=== PATIENT | female | born 2000 | race Caucasian/White ===

== ENCOUNTER 2021-09-19 23:50 | Emergency (ER) | payer OTHER, SELFPAY ==
--- NOTE | ~2021-09-19 | XR_ITS ---
EXAMINATION: XR tibia fibula LT 2V EXAM DATE: 09/20/2021 01:44 INDICATION: Injury, left tibia-fibula pain. TECHNIQUE: Left tibia/fibula frontal and lateral projections obtained and reviewed. There is no prio r study for comparison. FINDINGS: Left tibial and fibular shafts unremarkable. There are no acute fractures or dislocations identified. There is no subcutaneous gas. The soft tissue is unremarkable. There are no radiopaqu e foreign bodies. IMPRESSION: No acute osseous findings. Reviewed, dictated and finalized at location A. MA COUNSELLOR IMPRESSION: No acute osseous findings.
[2021-09-19 23:55] VITALS: BP 141/81; PULSE 106; RESP 16; TEMP 36.9; O2SAT 98
[2021-09-20] MEDS: ACETAMINOPHEN 325 MG TABLET 650 MG PO (01:42)
--- NOTE | 2021-09-20 01:59 | ED_ITS ---
HPI - Extremity Injury (Lower) General Chief Complaint: Extremity Injury, Lower Stated Complaint: left foot injury Time Seen by Provider: 09/20/21 01:21 Source: patient Mode of arrival: ambulatory Limitations: no limitations History of Present Illness HPI Narrative: 21-year-old female She was getting out of the shower and me to grab the towel, which stuck on the broken towel rack, and when she gave it a year she slipped on the wet floor the does not have a bath mat and fell and whacked her rico on the side of the bathtub She has a long bruise to the anterior edge of the rico probably 12 inches long by maybe an inch wide as if she had scraped it, but her recollection is more that she just struck one spot hard on the edge of the tub She did not hurt anything else Related Data Allergies Allergy/AdvReac Type Severity Reaction Status Date / Time No Known Allergies Allergy Unknown Unverified 09/20/19 19:55 Review of Systems Constitutional: Constitutional: Denies fatigue, Denies fever(s) and Denies weakness Cardiovascular: Cardiovascular: Denies chest pain Respiratory: Respiratory: Denies dyspnea Genitourinary: Genitourinary: Denies flank pain Musculoskeletal: Musculoskeletal: Denies back pain Neurologic: Denies focal weakness [facility] [place] Social History Social History (Updated 09/20/19 @ 20:40 by Wendy Downey) Smoking status: Never smoker Gender identity (if verbalized by the patient): Female Exam Const: General: no acute distress and alert Nutritional Appearance: thin Orientation/consciousness: patient oriented x3 HENMT: Head: no contusions and no hematomas Resp: Effort & Inspection: normal respiratory effort and not labored Neuro: General: patient oriented x3 and moves all extremities Extrem: Other: Mild bruising to the mid anterior rico Calf is completely soft and nontender Knee has no effusions and no tenderness and no laxity Sensation and pulses are normal and symmetric distally Course Vital Signs Vital signs: Vital Signs Temperature 36.9 C 09/19/21 23:55 Pulse Rate 106 H 09/19/21 23:55 Respiratory Rate 16 09/19/21 23:55 Blood Pressure 141/81 H 09/19/21 23:55 Pulse Oximetry 98 09/19/21 23:55 Temperature 36.9 C 09/19/21 23:55 Pulse Rate 86 09/20/21 02:14 Respiratory Rate 16 09/20/21 02:14 Blood Pressure 109/69 09/20/21 02:14 Pulse Oximetry 100 09/20/21 02:14 MDM - Extremity Injury (Lower) Imaging Data Attestation: I personally reviewed and interpreted this imaging study as follows: My impression: Normal Discharge Plan Discharge Clinical Impression: Contusion of lower leg Patient Disposition: Home, Self-Care Condition: Stable Instructions: Contusion in Adults (ED) Additional Instructions: Tylenol as needed, apply an ice pack to the painful area for 10 or 15 minutes 3 or 4 times a day Follow-up/Referrals: Kirby Hinojosa MD [Physician] - (It is very unlikely that he will need to see an orthopedic surgeon but if you have persistent issues please contact Dr. Hinojosa) PHYSICIAN,BORING MACHINE SET UP OPERATOR JIG [Primary Care Provider] -
[2021-09-20 02:14] VITALS: BP 109/69; PULSE 86; RESP 16; O2SAT 100
== END 2021-09-20 02:18 | disposition home or self-care (01) ==
PROVIDERS: Emergency Provider Emergency Medicine
DX: S80.12XA Contusion of left lower leg, initial encounter (principal); W01.0XXA Fall on same level from slipping, tripping and stumbling without subsequent striking against object, initial encounter
CPT/HCPCS: 73590; 99283; A9270